=== PATIENT | female | born 2000 | race African-American/Black ===

== ENCOUNTER 2019-08-13 13:53 | Emergency (ER) | payer MEDICAID, OTHER ==
[~2019-08-13] VITALS: Ht 162.6 cm; Wt 54.4 kg
[2019-08-13 14:03] VITALS: BP 103/66
[2019-08-13] MEDS ORDERED: ACETAMINOPHEN 500 MG TAB PO ONE (14:30)
== END 2019-08-13 15:27 | disposition home or self-care (01) ==
LOC: ER 13:53
DX: S00.83XA Contusion of other part of head, initial encounter (principal); S30.0XXA Contusion of lower back and pelvis, initial encounter; S50.12XA Contusion of left forearm, initial encounter; Y04.2XXA Assault by strike against or bumped into by another person, initial encounter; Y93.89 Activity, other specified; Y92.89 Other specified places as the place of occurrence of the external cause; Y99.8 Other external cause status
CPT/HCPCS: 72070